=== PATIENT | female | born 1995 | race Hispanic/Latino ===

== ENCOUNTER 2017-07-25 14:06 | Emergency (ER) | payer OTHER | END 2017-07-25 17:50 | disposition home or self-care (01) | LOC: ERS 14:06 | DX: H60.91 Unspecified otitis externa, right ear (principal) | CPT/HCPCS: 99282 ==

== ENCOUNTER 2017-10-25 11:59 | Emergency (ER) | payer OTHER, SELFPAY ==
[2017-10-25 13:12] LABS: #Basophils 0.1 thou/uL (0.0-0.2); #Eosinphils 0.1 thou/uL (0.0-0.7); #Lymphocytes 2.3 thou/uL (1.20-3.40); #Monocytes 0.4 thou/uL (0.11-0.59); #Neutrophils 3.5 thou/uL (1.40-6.50); %Basophils 1.4 % (0.0-1.0); %Eosinophils 1.6 % (0.0-10.0); %Lymphocytes 35.9 % (21.0-51.0); %Monocytes 6.3 % (0.0-10.0); %Neutrophils 54.8 % (42.0-75.0); Hemoglobin 13.5 g/dL (12.0-16.0); Mean Corpuscular HGB CONC 33.2 g/dL (32.0-36.0); Mean Corpuscular Hemoglobin 28.1 pg (27.0-31.0); Mean Corpuscular Volume 84.5 fl (81.0-99.0); Mean Platelet Volume 6.7 fL (7.4-10.4); Platelet Count 341 thou/uL (130-400); RBC Distribution Width 11.9 % (11.5-14.5); Red Blood Cell (RBC) Count 4.82 mill/uL (4.20-5.40); White Blood Cell (WBC) Count 6.3 thou/uL (4.8-10.8)
[2017-10-25 13:19] LABS: Bilirubin Negative (Negative); Blood, Urine Negative (Negative); Clarity CLOUDY (Clear); Glucose, Urine (Dipstick) Negative (Negative); Leukocyte Moderate (Negative); Nitrite Negative (Negative); Protein, Urine (Dipstick) Negative (Neg-Trace); Specific Gravity, Urine 1.026 (1.002-1.036); Urobilinogen 0.2 mg/dL (0.2-1.0)
[2017-10-25 13:22] LABS: BHCG - Serum Negative (NEGATIVE); Pregs Control Background? CLEAR/WHITE (CLR/WHITE); Pregs Control Bar Appear? YES (CONTROL BAR)
[2017-10-25 13:22] LABS: Bacteria/HPF 1+ HPF (None Seen); Hyaline Casts/LPF 4-6 HYALINE CAST LPF (0-3 Hyaline); Pathc Cast-AUWi Flag 1.74 (0-2.49); Squamous Epithelial 21-50 HPF (0-3)
[2017-10-25 13:35] LABS: ALT (SGPT) 13 U/L (8-55); AST (SGOT) 12 U/L (5-34); Albumin 4.3 g/dL (3.5-5.0); Alkaline Phosphatase 121 U/L (40-150); Anion Gap 12 mmol/L (10-20); BUN (Urea Nitrogen) 10 mg/dL (7.0-18.7); Bilirubin, Total 0.3 mg/dL (0.2-1.2); Calc. Creatinine Clearance 0 mL/min (70-130); Calcium 9.7 mg/dL (7.8-10.44); Carbon Dioxide 24 mmol/L (22-29); Chloride 107 mmol/L (98-107); Estimated GFR-MDRD Greater than 90; Globulin 3.1 g/dL (2.4-3.5); Glucose 111 mg/dL (70-105); Lipase 31 U/L (8-78); Potassium 3.5 mmol/L (3.5-5.1); Protein, Total 7.4 g/dL (6.0-8.3); Sodium 139 mmol/L (136-145)
[2017-10-25 13:38] LABS: RBC/HPF 0-3 HPF (0-3)
--- NOTE | 2017-10-25 14:05 | CT ---
CT ABDOMEN AND PELVIS WITH CONTRAST: TECHNIQUE: Multiple axial tomograms were obtained through the abdomen and pelvis with IV enhancement. Oral cont rast was not administered. INDICATION: Abdominal pain. Right lower quadrant pain. FINDINGS: Lung bases clear. Liver, spleen, and pancreas unremarkable. Adrenal glands and kidneys unremarkable . Small bowel loops appear normal. Appendix is identified and appears unremarkable. No evidence of appendicitis. Colon unremarkable. Images through the pelvis show mildly prominent uterus. Adnexa appear unremarkable. Urinary bladder unremarkable. Aorta is normal. IMPRESSION: No acute process identified. Uterus is mildly prominent in size. Suggest correlation with serum HCG . POS: [facility]
[2017-10-25] MEDS ORDERED: ISOVUE-370 76%-LOCM 1 ML ONE (15:08)
== END 2017-10-25 14:10 | disposition home or self-care (01) ==
LOC: ERS 11:59
DX: R10.31 Right lower quadrant pain (principal); R11.0 Nausea; I10 Essential (primary) hypertension
CPT/HCPCS: 74177; 80053; 81003; 81015; 83690; 84703; 85025; 87086; 96360